=== PATIENT | female | born 1970 | race Caucasian/White ===

== ENCOUNTER 2021-01-11 20:11 | Emergency (ER) | payer BC ==
[~2021-01-11] VITALS: Ht 180.3 cm; Wt 95.3 kg
--- NOTE | 2021-01-11 20:21 | NUR ---
PT BIBSELF C/O LEFT EYE LAC S/P FALL. PT AAOX4 BREATHING EVEBLY AND UNLABORED. PT STATES " I HAD A FEW DRINKS AND I FELL, BUT I DONT REMEMBER FALLING". PT HAS LEFT EYE BROW LAC. MINOR BLEEDING NOTED. RT HAND 20G IV INITIATED. EMT AT BEDSIDE FOR WOUND CARE AND EKG. PT ON CLINICAL ADMINISTRATIVE COORDINATOR AND POX. PT GIVEN BLANKET AND CALL LIGHT WITHIN REACH.
[2021-01-11] MEDS ORDERED: TDAP [DIPH/PERTUSSIS/TET] 0.5 ML VIAL IM ONE ×2 (20:30→20:36)
[2021-01-11] MEDS ORDERED: LIDOCAINE 0.5%-EPI 1:200,000 50 ML VIAL TP ONE (20:30)
--- NOTE | 2021-01-11 20:30 | NUR ---
LAB AT BEDSIDE
[2021-01-11 21:01] LABS: BASOPHILS % (AUTO) 0.5 % (0.0-2.0); EOSINOPHILS % (AUTO) 6.4 % (0.0-6.0); HEMATOCRIT 36 % (33-45); HEMOGLOBIN 11.8 g/dL (11.5-14.8); LYMPHOCYTES % (AUTO) 27.8 % (20.0-44.0); MEAN CORPUSCULAR HGB CONC 33 g/dl (31.0-36.0); MEAN CORPUSCULAR VOLUME 94 fL (82-100); MONOCYTES # (AUTO) 0.2 /CMM (0.1-1.30); MONOCYTES % (AUTO) 6.6 % (2.0-12.0); NEUTROPHILS # (AUTO) 2.1 /CMM (1.8-8.9); NEUTROPHILS % (AUTO) 58.7 % (43.0-81.0); PLATELET COUNT (AUTO) 224 /CMM (150-450); RED BLOOD CELL COUNT(AUTO) 3.82 MIL/uL (4.0-5.2); WHITE BLOOD COUNT (AUTO) 3.6 K/uL (4.3-11.0)
[2021-01-11] MEDS ORDERED: LIDOCAINE 1%-EPI 1:100,000 20 ML VIAL ONE (21:05)
[2021-01-11 21:10] LABS: CALCIUM, SERUM 9.2 mg/dL (8.5-10.1); CARBON DIOXIDE 24 mmol/L (21-32); CHLORIDE 105 mmol/L (98-107); CREATININE 0.8 mg/dL (0.6-1.3); GLUCOSE 80 mg/dL (74-106); POTASSIUM 3.7 mmol/L (3.5-5.1); SODIUM SERUM 141 mmol/L (136-145); UREA NITROGEN, BLOOD 24 mg/dL (7-18)
--- NOTE | 2021-01-11 21:17 | NUR ---
PT TO CT.
--- NOTE | 2021-01-11 22:01 | NUR ---
Patient discharged to home in stable condition. Written and verbal after care instructions given. Patient verbalizes understanding of instruction. IV removed. Catheter intact and site benign. Pressure and 4x4 applied to site. No bleeding noted. Pt ambulatory with a steady gait
[2021-01-11 22:02] VITALS: BP 115/90
== END 2021-01-11 22:01 | disposition home or self-care (01) ==
LOC: ER 20:18
DX: S01.112A Laceration without foreign body of left eyelid and periocular area, initial encounter (principal); R94.31 Abnormal electrocardiogram [ECG] [EKG]; Z72.89 Other problems related to lifestyle; W19.XXXA Unspecified fall, initial encounter; Y93.89 Activity, other specified; Y92.098 Other place in other non-institutional residence as the place of occurrence of the external cause; Y99.8 Other external cause status
CPT/HCPCS: 12011; 36415; 70450; 71045; 80048; 84484; 85025; 90471; 90715; 93005; 99285; J3490